=== PATIENT | female | born 1935 | race Caucasian/White ===

== ENCOUNTER 2017-07-16 11:23 | Observation (INO) | payer MEDICARE, MEDICAID ==
[2017-07-16 11:45] VITALS: BMI 23.8
[2017-07-16] MEDS ORDERED: Sodium Chloride 0.9% 1,000 ML IV ONE (12:42)
--- NOTE | 2017-07-16 12:48 | C.PDOC ---
History Of Present Illness Patient is a 81 y/o female, with a Hx of HTN, who presents to the ED with family complaining of lower abdominal pressure and general weakness. Patient describes abdominal pressure as "bloating sensation" and notes head feeling heavy. Patient was started on Macrobid on 07/09 for UTI. Patient's son-in-law notes prior to arrival, patient had pulse of 120. No other physical complaints at this time. Time Seen by Provider: 07/16/17 12:21 Chief Complaint (Nursing): Headache History Per: Patient, Family History/Exam Limitations: no limitations Onset/Duration Of Symptoms: Days Current Symptoms Are (Timing): Still Present Reports Recently: Treated By A Physician Recent travel outside of the [place]: No Past Medical History Reviewed: Historical Data, Nursing Documentation, Vital Signs Vital Signs: Last Vital Signs Temp 98.1 F 07/17/17 16:17 Pulse 74 07/17/17 16:17 Resp 20 07/17/17 16:17 BP 135/75 07/17/17 16:17 Pulse Ox 96 07/19/17 11:58 - Medical History PMH: Arthritis, GERD, HTN Other Sur[facility]: [facility]) ESOPHAGOGASTRODUODENOSCOPY [EGD] W/CLOSED BIOPSY (11/22/12) Family History: States: No Known Family Hx - Social History Hx Tobacco Use: No Hx Alcohol Use: No Hx Substance Use: No - Immunization History Hx Influenza Vaccination: Yes Hx Pneumococcal Vaccination: Yes Review Of Systems Constitutional: Positive for: Weakness. Negative for: Fever, Chills Cardiovascular: Negative for: Chest Pain Respiratory: Negative for: Cough Gastrointestinal: Positive for: Abdominal Pain (abdominal pressure). Negative for: Nausea, Vomiting, Diarrhea Genitourinary: Positive for: Frequency Neurological: Negative for: Weakness, Numbness Physical Exam - Physical Exam Appears: Non-toxic, Other (smiling) Skin: No Rash Head: Atraumatic Eye(s): bilateral: PERRL, EOMI Oral Mucosa: Moist Throat: Normal, No Erythema, No Exudate Neck: Supple Chest: Symmetrical Cardiovascular: Rhythm Regular, No Murmur, Other (regular rate) Respiratory: No Rales, No Rhonchi, No Wheezing, Other (bilateral crackles, left greater than right) Gastrointestinal/Abdominal: Bowel Sounds (normoactive), Soft, Tenderness ( suprapubic), No Distention, No Guarding, No Rebound Extremity: No Pedal Edema, No Swelling Neurological/Psych: Oriented x3, Normal Speech, Normal Cognition, Other (no focal deficits) ED Course And Treatment - Laboratory Results Result Diagrams: 07/17/17 08:11 07/17/17 08:11 O2 Sat by Pulse Oximetry: 96 - CT Scan/US CT chest Other Rad Studies (CT/US): Interpreted By Me, Read By Radiologist CT/US Interpretation: HISTORY: COMPARISON: CT chest without contrast from 2012. TECHNIQUE: Chest PA and lateral. FINDINGS: LINES AND TUBES: None. LUNG AND PLEURA: The lungs are hyperinflated and there is peribronchial thickening with chronic changes in both lungs. There is diffuse interstitial thickening in the lungs. There is biapical pleural thickening. No focal consolidation. HEART AND MEDIASTINUM: The heart is not enlarged. The hilar and mediastinal contours are within normal limits. SKELETAL STRUCTURES: The bony structures are within normal limits for the patient's age. VISUALIZED UPPER ABDOMEN: Normal. OTHER FINDINGS: None. IMPRESSION: COPD. No active pulmonary disease. Diffuse increased interstitial thickening in the lungs may represent interstitial fibrosis, interstitial edema or interstitial pneumonitis. Clinical correlation and follow-up is advised. Progress Note: Blood work, CXR, UA ordered. IV fluids administered. Medical Decision Making Medical Decision Making: pt with elevated wbc, pneumonitis on cxr. will admit for pneumonia. antibiotics and blood cultures ordered. Dr Navarro message left on cell phone. Disposition Discussed With .: Nguyen Navarro Doctor Will See Patient In The: Hospital - Disposition Disposition: HOSPITALIZED Disposition Time: 16:03 Condition: GOOD - Clinical Impression Clinical Impression: Pneumonia - Scribe Statement The provider has reviewed the documentation as recorded by the Scribe Mey Daigle All medical record entries made by the Scribe were at my direction and personally dictated by me. I have reviewed the chart and agree that the record accurately reflects my personal performance of the history, physical exam, medical decision making, and the department course for this patient. I have also personally directed, reviewed, and agree with the discharge instructions and disposition.
[2017-07-16] MEDS ORDERED: Sodium Chloride 0.9% 1,000 ML ONE (12:56)
[2017-07-16 12:57] LABS: BASO # 0.1 K/uL (0.0-0.2); EOS # 0.1 K/uL (0.0-0.7); HEMOGLOBIN 11.7 g/dL (11.0-16.0); LYMPH # 0.8 K/uL (1.0-4.3); RED CELL DISTRIBUTION WIDTH 13.8 % (11.5-14.5)
[2017-07-16 13:08] LABS: BASO % 0.4 % (0.0-2.0); CALCIUM 9.9 mg/dl (8.6-10.4); EOS % 0.7 % (0.0-4.0); LYMPH % 5.1 % (20.0-40.0); MEAN CELL VOLUME 89.6 fL (81.0-99.0); MEAN CORPUSCULAR HEMOGLOBIN 30.4 pg (27.0-31.0); MEAN CORPUSCULAR HGB CONC 33.9 g/dL (33.0-37.0); MEAN PLATELET VOLUME 9.7 fL (7.2-11.7); MONO # 0.6 K/uL (0.0-0.8); MONO % 3.9 % (0.0-10.0); NEUT # 14.4 K/uL (1.8-7.0); NEUT % 89.9 % (50.0-75.0); PLATELET COUNT 323 K/uL (130-400); RBC 3.86 Mil/uL (3.80-5.20); WHITE BLOOD COUNT 16.1 K/uL (4.8-10.8)
[2017-07-16 13:17] LABS: B-TYPE NATRIURETIC PEPTIDE 62.9 pg/mL (0-900)
[2017-07-16 13:19] LABS: ALB/GLOB RATIO 1.1 (1.0-2.1); ALBUMIN 4.4 g/dL (3.5-5.0)
--- NOTE | 2017-07-16 13:31 | RAD ---
HISTORY: COMPARISON: CT chest without contrast from 04/23 2012 TECHNIQUE: Chest PA and lateral FINDINGS: LINES AND TUBES: None. LUNG AND PLEURA: The lungs are hyperinflated and there is peribronchial thickening with chronic changes in both lungs. There is diffuse interstitial thickening in the lungs. There is biapical pleural thickening. No focal consolidation. HEART AND MEDIASTINUM: The heart is not enlarged. The hilar and mediastinal contours are within normal limits. SKELETAL STRUCTURES: The bony structures are within normal limits for the patient's age. VISUALIZED UPPER ABDOMEN: Normal. OTHER FINDINGS: None. IMPRESSION: COPD. No active pulmonary disease. Diffuse increased interstitial thickening in the lungs may represent interstitial fibrosis, interstitial edema or interstitial pneumonitis. Clinical correlation and follow-up is advised.
[2017-07-16 13:33] LABS: BANDS 1 % (0-2); MONOCYTE 3 % (0-10); TOTAL CELLS COUNTED 100
[2017-07-16 13:34] LABS: ANISOCYTOSIS SLIGHT; HYPOCHROMIC SLIGHT; LYMPHOCYTE 5 % (20-40); NEUTROPHIL 91 % (50-75); PLATELET ESTIMATE NORMAL (NORMAL); POIKILOCYTOSIS SLIGHT
[2017-07-16 13:59] LABS: SQUAMOUS EPITHIAL < 1 /hpf (0-5); URINE BILIRUBIN NEGATIVE (NEGATIVE); URINE BLOOD 1+ (NEGATIVE); URINE CLARITY Clear (Clear); URINE COLOR Straw (YELLOW); URINE GLUCOSE (UA) NORMAL (Normal); URINE LEUKOCYTE ESTERASE NEG Leu/uL (Negative); URINE PROTEIN NEGATIVE (NEGATIVE); URINE UROBILINOGEN NORMAL mg/dL (0.2-1.0)
[2017-07-16] MEDS ORDERED: cefTRIAXone IV 1 gm in Dextros 50 ML IVPB ONE ×2 (14:55→15:10)
[2017-07-16] MEDS ORDERED: Piperacill/Tazo 3.375gm in Dex 3.375 GM/50 ML BAG IVPB STA (14:56)
[2017-07-16] MEDS ORDERED: Piperacillin/Tazobact 3.375 gm 100 ML IVPB ONE (15:09)
--- NOTE | 2017-07-16 16:57 | CT ---
PROCEDURE: CT HEAD WITHOUT CONTRAST. HISTORY: heavy feeling head. dizzy COMPARISON: 04/23/2012. TECHNIQUE: Axial computed tomography images were obtained through the head/brain without intravenous contrast. Radiation dose: Total exam DLP = 653.68 mGy-cm. This CT exam was performed using one or more of the following dose reduction techniques: Automated exposure control, adjustment of the mA and/or kV according to patient size, and/or use of iterative reconstruction technique. FINDINGS: HEMORRHAGE: No intracranial hemorrhage. BRAIN: There are mild chronic microangiopathic changes. There is no mass, mass effect or abnormal extra-axial fluid collection. VENTRICLES: There is mild age-related global parenchymal volume loss and proportionate enlargement of the ventricles and cortical sulci. CALVARIUM: The skull base and calvarium are normal. PARANASAL SINUSES: Predominantly clear. MASTOID AIR CELLS: Predominantly clear. OTHER FINDINGS: None. IMPRESSION: No acute intracranial abnormality. Mild chronic microangiopathic changes and mild age-related global parenchymal volume loss.
[2017-07-16 21:51] VITALS: RESP 20
[2017-07-16] MEDS ORDERED: cefTRIAXone IV 1 gm in Dextros 50 ML IVPB SCH (22:00)
[2017-07-16] MEDS ORDERED: Imipenem/Cilastatin 500 MG in Dextrose 5% In Water 100 ML IVPB SCH (22:00)
--- NOTE | 2017-07-17 07:56 | CP.PCM.PN ---
Subjective - Date & Time of Evaluation Date of Evaluation: 07/17/17 Time of Evaluation: 07:43 - Subjective Subjective: PGY-[address] Hall's service: Pt seen and examined at bedside. Nursing reports no acute events overnight. Patient reports feeling better since receiving IV fluids. She denies any abdominal pain, n/v, fever, chills, chest pain, or SOB. Patient is a 81 y/o female, with a Hx of HTN, who presented to ED pm 07/16/17, c/ o lower abdominal pressure and general weakness. Patient describes abdominal pressure as "bloating sensation" and notes head feeling heavy. Patient was started on Macrobid on 07/09 for UTI. Patient's son-in-law notes prior to arrival , patient had pulse of 120. No other physical complaints at this time. Objective - Vital Signs/Intake and Output Vital Signs (last 24 hours): Temp Pulse Resp BP Pulse Ox 98.3 F 79 20 126/68 95 07/16/17 23:45 07/16/17 23:45 07/16/17 23:45 07/16/17 23:45 07/17/17 06:39 Intake and Output: 07/17/17 07/17/17 06:59 18:59 Intake Total 650 Output Total 800 Balance -150 - Medications Medications: Current Medications Enoxaparin Sodium (Lovenox) 40 mg SC DAILY [facility] Azithromycin 500 mg/ Sodium (Chloride) 250 mls @ 250 mls/hr IVPB DAILY [facility] PRN Reason: Protocol Ceftriaxone Sodium (Rocephin Iv 1 Gm Duplex) 50 mls @ 100 mls/hr IVPB DAILY [facility] PRN Reason: Protocol Losartan Potassium (Cozaar) 50 mg PO DAILY [facility] Rosuvastatin Calcium (Crestor) 20 mg PO [facility] Last Admin: 07/16/17 21:54 Dose: 20 mg - Labs Labs: 07/16/17 12:53 07/16/17 12:53 - Constitutional Appears: Non-toxic, No Acute Distress - Head Exam Head Exam: ATRAUMATIC, NORMAL INSPECTION - Eye Exam Eye Exam: EOMI. absent: Scleral icterus Pupil Exam: PERRL - ENT Exam ENT Exam: Mucous Membranes Moist - Neck Exam Neck Exam: Full ROM - Respiratory Exam Respiratory Exam: Clear to Ausculation Bilateral, NORMAL BREATHING PATTERN - Cardiovascular Exam Cardiovascular Exam: REGULAR RHYTHM, +S1, +S2 - GI/Abdominal Exam GI & Abdominal Exam: Soft, Normal Bowel Sounds. absent: Tenderness - Extremities Exam Extremities Exam: Normal Inspection. absent: Pedal Edema - Back Exam Back Exam: absent: CVA tenderness (L), CVA tenderness (R) - Neurological Exam Neurological Exam: Alert, Awake, Oriented x3 - Psychiatric Exam Psychiatric exam: Normal Affect - Skin Skin Exam: Normal Color, Warm Assessment and Plan - Assessment and Plan (Free Text) Plan: Pneumonia, Community acquired Observe on med/surg WBC 16.1 on admission, Afebrile CT Chest (07/17/17): COPD. No active pulmonary disease. Diffuse increased interstitial thickening in the lungs may represent interstitial fibrosis, interstitial edema or interstitial pneumonitis. Clinical correlation and follow- up is advised. BNP 62.9 Ceftriaxone Azithromycin Leukocytosis with bandemia Resolved WBC 16.1 w left shift and 1 band on admission Etiology: 2/2 Pneumonia See antibiotics above f/u blood and urine culture Dizziness Ct Head (07/17/17): No acute abnormality. Mild chronic microangiopathic changes and mild age-related global parenchymal volume loss Hypertension Well-controlled Cozaar 50mg PO HS HX of recent UTI UA (07/16/17): WNL on admission Completed course of Macrobid f/u culture Hyperlipidemia Crestor 20mg PO HS Hyperkalemia K 5.4 on admission, 4.2 today Prophylaxis Lovenox 40mg SC daily SCDs GI not indicated Disposition: Pt for discharge today with Levaquin x [address] Hall. Will follow cultures going forward. All medical management per Isabel
[2017-07-17 08:20] LABS: BASO % 0.9 % (0.0-2.0); EOS # 0.3 K/uL (0.0-0.7); EOS % 5.5 % (0.0-4.0); HEMOGLOBIN 10.6 g/dL (11.0-16.0); LYMPH # 1.3 K/uL (1.0-4.3); LYMPH % 27.1 % (20.0-40.0); MEAN CELL VOLUME 89.8 fL (81.0-99.0); MEAN CORPUSCULAR HEMOGLOBIN 30.4 pg (27.0-31.0); MEAN CORPUSCULAR HGB CONC 33.9 g/dL (33.0-37.0); MEAN PLATELET VOLUME 7.8 fL (7.2-11.7); MONO # 0.2 K/uL (0.0-0.8); MONO % 4.8 % (0.0-10.0); NEUT % 61.7 % (50.0-75.0); RBC 3.48 Mil/uL (3.80-5.20); RED CELL DISTRIBUTION WIDTH 13.9 % (11.5-14.5); WHITE BLOOD COUNT 4.8 K/uL (4.8-10.8)
[2017-07-17 08:47] LABS: ALB/GLOB RATIO 1.1 (1.0-2.1); ALBUMIN 3.6 g/dL (3.5-5.0); ALT/SGPT 22 U/L (9-52); AST/SGOT 34 U/L (14-36); BLOOD UREA NITROGEN 15 mg/dL (7-17); CALCIUM 9.1 mg/dl (8.6-10.4); GFR AFRICAN-AMERICAN > 60; GFR NON-AFRICAN AMERICAN 53
[2017-07-17] MEDS ORDERED: Enoxaparin 40 mg Syringe SC SCH (10:00)
[2017-07-17] MEDS ORDERED: Azithromycin 500 MG in Sodium Chloride 0.9% 250 ML IVPB SCH (10:00)
[2017-07-17] MEDS ORDERED: cefTRIAXone IV 1 gm in Dextros 50 ML IVPB SCH (10:00)
[2017-07-17 16:18] VITALS: BP 135/75; PULSE 74; TEMP 98.1
[2017-07-19 11:58] VITALS: O2SAT 96
--- NOTE | 2017-07-20 09:01 | HP ---
SUBJECTIVE: An 81-year-old female who comes to the hospital with a chief complaint of cough, fever, weakness, came to the ER, admitted for possible pneumonia. The patient has a history of COPD. PHYSICAL EXAMINATION: GENERAL: The patient is awake, alert, oriented. VITAL SIGNS: Temperature 98, pulse 90. HEENT: Within normal limits. NECK: Supple. CHEST: Symmetrical. HEART: Regular. ABDOMEN: Soft. EXTREMITIES: No edema. IMPRESSION AND PLAN: The patient is suffering from pneumonia. The patient on IV antibiotics, supportive care. Nguyen Hall MD
== END 2017-07-17 18:30 | disposition home or self-care (01) ==
LOC: C.ER 11:23 → C.9E 15:58 → C.3T 19:07
PROVIDERS: ADMIT Internal Medicine Pulmonary Disease; ATTEND Internal Medicine Pulmonary Disease
DX: J44.0 Chronic obstructive pulmonary disease with (acute) lower respiratory infection (principal); J18.9 Pneumonia, unspecified organism; K21.9 Gastro-esophageal reflux disease without esophagitis; I10 Essential (primary) hypertension
CPT/HCPCS: 36415; 70450; 71046; 80053; 81001; 83735; 83880; 84100; 85025; 87040; 87086; 96365; 99285; G0378; J0456; J0696; J1650; J2543; J7030; J7050